=== PATIENT | male | born 1980 | race Caucasian/White ===

== ENCOUNTER → 2017-12-31 | Outpatient (CLI) | payer OTHER ==
[~2017-12-31] MED LIST: CIPRO500 MG PO; CLOBETASOL PROP60 G1; FLAGYL500 MG PO; IMODIUM A-1 MG/7.5 M PO; LEVITRA20 MG; LEXAPRO 10 MG T10 MG PO; PREDNISONE50 MG PO; VISTARIL PO; ZOFRAN ODT4 MG PO
== END ==
LOC: M.RAD 14:09
DX: M25.511 Pain in right shoulder (principal); M89.8X1 Other specified disorders of bone, shoulder

== ENCOUNTER → 2018-01-06 | Outpatient (CLI) | payer OTHER | LOC: M.RAD 09:16 | DX: M25.511 Pain in right shoulder (principal) ==

== ENCOUNTER → 2018-02-02 | Outpatient (CLI) | payer OTHER | LOC: M.CT 13:40 | DX: S42.021A Displaced fracture of shaft of right clavicle, initial encounter for closed fracture (principal); X58.XXXA Exposure to other specified factors, initial encounter; Y93.89 Activity, other specified; Y92.89 Other specified places as the place of occurrence of the external cause; Y99.8 Other external cause status ==